=== PATIENT | male | born 1940 | race Caucasian/White ===

== ENCOUNTER 2021-06-06 10:58 | Inpatient (IN) ==
[2021-06-06] MEDS ORDERED: NS 0.9% 1000 ml BAG 1,000 ML IV ONE (11:00)
[2021-06-06] MEDS ORDERED: Iodixanol (CONTRAST) 320 MG/ML 100 ML SDV IV ONE (11:14)
[2021-06-06 11:15] LABS: ABS Lymphocytes 0.5 10^3/ul (1.0-4.8); ABS Monocytes 0.9 10^3/ul (0-0.8); Hematocrit 39 % (42-52); Hemoglobin 13.2 g/dL (14.0-18.0); Lymphocyte % 2.4 %; Mean Corpuscular HGB Conc 34 g/dL (31-36); Mean Corpuscular Hemoglobin 29 pg (27-31); Mean Corpuscular Volume 85 fL (80-94); Mean Platelet Volume 7.8 fL (7.4-10.4); Platelet Count 237 10^3/uL (150-450); Red Blood Count 4.61 10^6 /uL (4.18-5.48); Red Cell Distribution Width 14 % (10-15); White Blood Count 21.4 10^3/uL (3.5-10.8)
[2021-06-06 11:23] LABS: INR 1.16 (0.86-1.15)
[2021-06-06 11:33] LABS: Albumin 3.9 g/dL (3.2-5.2); Albumin/Globulin Ratio 1.3 (1-3); Calcium 9.1 mg/dL (8.6-10.3); HDL Cholesterol 60.2 mg/dL; Total Bilirubin 0.6 mg/dL (0.2-1.0); Total Protein 6.9 g/dL (6.4-8.9); eGFR CKD-EPI 58.2 (>60)
[2021-06-06 11:35] LABS: Troponin I 0.02 ng/mL (<0.03)
[2021-06-06] MEDS ORDERED: Ondansetron 4 mg VIAL 2 MG/ML 2 ml VIAL IV ONE (14:47)
[2021-06-06] MEDS ORDERED: Cefepime 1 GM in Dextrose 1 GM/50 ML BAG IV ONE (14:49)
[2021-06-06] MEDS ORDERED: cefTRIAXone 1 gm/50 mL NS BAG 1 GM/50 ML BAG IVPB SCH (20:00)
[2021-06-06] MEDS ORDERED: Enoxaparin 40 MG/0.4 ML SYR SUBCUT SCH (21:00)
[2021-06-06 21:56] LABS: Hematocrit 33 % (42-52); Mean Corpuscular HGB Conc 34 g/dL (31-36); Mean Corpuscular Hemoglobin 29 pg (27-31); Mean Corpuscular Volume 85 fL (80-94); Mean Platelet Volume 7.8 fL (7.4-10.4); Platelet Count 190 10^3/uL (150-450); Red Blood Count 3.86 10^6 /uL (4.18-5.48); Red Cell Distribution Width 14 % (10-15); White Blood Count 14.4 10^3/uL (3.5-10.8)
[2021-06-06 21:56] LABS: C Reactive Protein 30.97 mg/L (<8.01)
[2021-06-06] MEDS ORDERED: Acetaminophen IV 1 GM/100ML VI 100 ML IVPB ONE (22:00)
[2021-06-06] MEDS ORDERED: Enoxaparin 30 MG/0.3 ML SYR SUBCUT SCH (22:00)
[2021-06-06 22:12] LABS: Calcium 8.1 mg/dL (8.6-10.3); Potassium 3.8 mmol/L (3.5-5.0); eGFR CKD-EPI 72.6 (>60)
[2021-06-07] MEDS ORDERED: Lactated Ringers 1000 ml BAG 1,000 ML IV SCH (02:40)
[2021-06-07] MEDS ORDERED: Iodixanol (CONTRAST) 320 MG/ML 100 ML SDV IV ONE (03:23)
[2021-06-07 05:01] LABS: ABS Lymphocytes 0.5 10^3/ul (1.0-4.8); ABS Monocytes 0.8 10^3/ul (0-0.8); ABS Neutrophils 10.4 10^3/ul (1.5-7.7); Eosinophil % 0.1 %; Hematocrit 32 % (42-52); Hemoglobin 10.8 g/dL (14.0-18.0); Lymphocyte % 4.3 %; Mean Corpuscular HGB Conc 34 g/dL (31-36); Mean Corpuscular Hemoglobin 29 pg (27-31); Mean Corpuscular Volume 85 fL (80-94); Platelet Count 165 10^3/uL (150-450); Red Cell Distribution Width 14 % (10-15); White Blood Count 11.7 10^3/uL (3.5-10.8)
[2021-06-07 05:39] LABS: Albumin 3.1 g/dL (3.2-5.2); Calcium 8.1 mg/dL (8.6-10.3); Direct Bilirubin 0.2 mg/dL (0.03-0.18); Indirect Bilirubin 0.5 mg/dL (0.3-1.0); Magnesium 1.8 mg/dL (1.9-2.7); Potassium 3.7 mmol/L (3.5-5.0); Total Bilirubin 0.7 mg/dL (0.2-1.0)
[2021-06-07 05:45] LABS: Albumin/Globulin Ratio 1.2 (1-3); Globulin 2.5 g/dL (2-4); HDL Cholesterol 49.6 mg/dL; Total Protein 5.6 g/dL (6.4-8.9); eGFR CKD-EPI 72.6 (>60)
[2021-06-07] MEDS ORDERED: cefTRIAXone 1 gm/50 mL NS BAG 1 GM/50 ML BAG IVPB SCH (06:00)
[2021-06-07 08:22] LABS: Urine Appearance Turbid; Urine Color Red
[2021-06-07 08:29] LABS: Urine Specific Gravity 1.039 (1.002-1.030)
[2021-06-07 08:35] LABS: Urine Bacteria Absent (Absent); Urine Red Blood Cell 3+(>10/hpf) (Absent); Urine White Blood Cell 3+(>20/hpf) (Absent)
[2021-06-09 06:14] LABS: Hematocrit 31 % (42-52); Hemoglobin 10.6 g/dL (14.0-18.0)
[2021-06-09 06:32] LABS: Calcium 8.1 mg/dL (8.6-10.3); Potassium 3.7 mmol/L (3.5-5.0); eGFR CKD-EPI 90.2 (>60)
[2021-06-10 06:58] LABS: Hematocrit 33 % (42-52); Hemoglobin 11.5 g/dL (14.0-18.0); Mean Corpuscular HGB Conc 35 g/dL (31-36); Mean Corpuscular Hemoglobin 29 pg (27-31); Mean Corpuscular Volume 85 fL (80-94); Mean Platelet Volume 8.4 fL (7.4-10.4); Platelet Count 166 10^3/uL (150-450); Red Blood Count 3.93 10^6 /uL (4.18-5.48); Red Cell Distribution Width 14 % (10-15); White Blood Count 4.7 10^3/uL (3.5-10.8)
[2021-06-11] MEDS ORDERED: Magnesium Hydroxide LIQ 30 ML UDC PO PRN (14:18)
[2021-06-11] MEDS: Senna TAB 8.6 mg TAB PO SCH (21:25)
[2021-06-11] MEDS: Polyethylene Glycol 3350 17 GM PACKET PO SCH (21:26)
[2021-06-12] MEDS: Senna TAB 8.6 mg TAB PO SCH ×2 (08:57→21:10)
[2021-06-12] MEDS: Polyethylene Glycol 3350 17 GM PACKET PO SCH ×2 (08:57→21:09)
[2021-06-13] MEDS: Polyethylene Glycol 3350 17 GM PACKET PO SCH ×2 (09:00→20:40)
[2021-06-13] MEDS: Senna TAB 8.6 mg TAB PO SCH ×2 (09:01→20:40)
[2021-06-14] MEDS: Polyethylene Glycol 3350 17 GM PACKET PO SCH ×2 (09:05→20:23)
[2021-06-14] MEDS: Senna TAB 8.6 mg TAB PO SCH ×2 (09:06→20:23)
[2021-06-15] MEDS: Senna TAB 8.6 mg TAB PO SCH ×2 (07:05→20:30)
[2021-06-15] MEDS: Polyethylene Glycol 3350 17 GM PACKET PO SCH ×2 (07:05→20:30)
[2021-06-16] MEDS: Polyethylene Glycol 3350 17 GM PACKET PO SCH ×2 (08:23→20:22)
[2021-06-16] MEDS: Senna TAB 8.6 mg TAB PO SCH ×2 (08:24→20:21)
[2021-06-17 08:05] VITALS: BP 144/63
[2021-06-17] MEDS: Polyethylene Glycol 3350 17 GM PACKET PO SCH (09:48)
[2021-06-17] MEDS: Senna TAB 8.6 mg TAB PO SCH (09:50)
== END 2021-06-17 13:45 | DRG 871 ==
LOC: ED 10:58 → EDHOLD 16:02 → SUATTDRO 16:02 → MEDTELE 17:49
PROVIDERS: ADMIT Internal Medicine; ATTEND Student in an Organized Health Care Education/Training Program

== ENCOUNTER 2023-06-19 13:03 | Inpatient (IN) ==
[2023-06-19 13:39] LABS: ABS Lymphocytes 0.6 10^3/uL (1.0-4.8); ABS Monocytes 0.3 10^3/uL (0.0-1.1); ABS Neutrophils 14.6 10^3/uL (1.5-7.6); ABS Nucleated RBC 0.01 10^3/ul; Hematocrit 36.5 % (38-53); Hemoglobin 12.1 g/dL (13.2-16.3); Lymphocyte % 3.6 %; Mean Corpuscular Volume 87.7 fL (80-97); Mean Platelet Volume 7.5 fL (7.5-11.2); Nucleated Red Blood Cells % 0.1 %/100WBC (0.0-0.8); Platelet Count 199 10^3/uL (150-450); Red Blood Count 4.16 10^6/uL (4.06-5.63); Red Cell Distribution Width 14.2 % (12-17); White Blood Count 15.5 10^3/uL (3.6-10.2)
[2023-06-19 14:14] LABS: Albumin 3.7 g/dL (3.2-5.2); Albumin/Globulin Ratio 1.4 (1-3); Calcium 8.5 mg/dL (8.6-10.3); Creatinine, Serum 1.05 mg/dL (0.67-1.17); Globulin 2.7 g/dL (2-4); Total Bilirubin 0.9 mg/dL (0.2-1.0); Total Protein 6.4 g/dL (6.4-8.9); eGFR CKD-EPI 70.9 (>60)
[2023-06-19] MEDS ORDERED: NORMOSOL R PH IV ONE (14:26)
[2023-06-19] MEDS ORDERED: Iohexol 350 (CONTRAST) 500 ML MDV IV ONE (14:59)
[2023-06-19] MEDS ORDERED: NS 0.9% IV SCH (15:00)
[2023-06-19 15:43] LABS: Activated Partial Thrombo Time 30.3 seconds (26.0-38.0); INR 1.27 (0.83-1.13)
[2023-06-19 16:41] LABS: Urine Appearance Cloudy; Urine Bilirubin Negative (Negative); Urine Color Yellow; Urine Ketones Negative (Negative)
[2023-06-19 16:42] LABS: Urine Blood Negative (Negative); Urine Nitrite Negative (Negative); Urine Protein 3+ (>=300 mg/dL) (Negative); Urine Urobilinogen 0.2 (Negative) (Negative); Urine pH >=9.0 (5.0-9.0)
[2023-06-19 16:49] LABS: Urine Squamous Epithelial Cell Present (Absent)
[2023-06-19 16:51] LABS: Urine Bacteria 2+ (Absent); Urine Red Blood Cell Trace(0-2/hpf) (Absent); Urine White Blood Cell 3+(>20/hpf) (Absent)
[2023-06-19 16:51] LABS: High Sensitivity Troponin 1 Hr 23 pg/mL (<20)
[2023-06-19] MEDS ORDERED: cefTRIAXone 1 gm/50 mL D5W 1 GM/50 ML BAG IV ONE (16:51)
[2023-06-19] MEDS ORDERED: Azithromycin 500 mg/250 ml NS 500 MG/250 ML BAG IVPB ONE (16:51)
[2023-06-19] MEDS: Enoxaparin 40 MG/0.4 ML SYR SUBCUT SCH (23:13)
[2023-06-20] MEDS ORDERED: Lactated Ringers 1000 ml BAG 1,000 ML IV ONE (03:19)
[2023-06-20 08:02] LABS: Hematocrit 30.8 % (38-53); Hemoglobin 10.4 g/dL (13.2-16.3); Mean Corpuscular Hemoglobin 29.6 pg (27-33); Mean Corpuscular Volume 87.3 fL (80-97); Mean Platelet Volume 7.9 fL (7.5-11.2); Platelet Count 137 10^3/uL (150-450); Red Blood Count 3.53 10^6/uL (4.06-5.63); Red Cell Distribution Width 14.4 % (12-17); White Blood Count 11.5 10^3/uL (3.6-10.2)
[2023-06-20 08:18] LABS: Albumin 3.1 g/dL (3.2-5.2); Albumin/Globulin Ratio 1.2 (1-3); Calcium 7.7 mg/dL (8.6-10.3); Creatinine, Serum 1.01 mg/dL (0.67-1.17); Globulin 2.6 g/dL (2-4); Magnesium 1.8 mg/dL (1.9-2.7); Potassium 3.8 mmol/L (3.5-5.0); Total Bilirubin 0.5 mg/dL (0.2-1.0); Total Protein 5.7 g/dL (6.4-8.9); eGFR CKD-EPI 74.3 (>60)
[2023-06-20] MEDS ORDERED: Magnesium Sulfate 2 gm BAG 2 GM/50 ML BAG IVPB ONE (09:45)
[2023-06-20] MEDS: cefTRIAXone 1 gm/50 mL D5W 1 GM/50 ML BAG IV SCH (15:46)
[2023-06-20] MEDS ORDERED: Azithromycin 500 mg/250 ml NS 500 MG/250 ML BAG IVPB SCH (16:00)
[2023-06-20] MEDS: Azithromycin 500 mg/250 ml NS 500 MG/250 ML BAG IVPB SCH (18:32)
[2023-06-20] MEDS: Enoxaparin 40 MG/0.4 ML SYR SUBCUT SCH (19:31)
[2023-06-21 07:43] LABS: ABS Eosinophils 0.1 10^3/uL (0.0-0.5); ABS Lymphocytes 0.5 10^3/uL (1.0-4.8); ABS Monocytes 0.5 10^3/uL (0.0-1.1); ABS Neutrophils 6.7 10^3/uL (1.5-7.6); ABS Nucleated RBC 0.01 10^3/ul; Eosinophil % 1.4 %; Hematocrit 29.5 % (38-53); Hemoglobin 10.2 g/dL (13.2-16.3); Mean Corpuscular Hemoglobin 30.2 pg (27-33); Mean Corpuscular Hgb Conc 34.7 g/dL (31-36); Mean Corpuscular Volume 86.8 fL (80-97); Mean Platelet Volume 8.1 fL (7.5-11.2); Nucleated Red Blood Cells % 0.1 %/100WBC (0.0-0.8); Platelet Count 119 10^3/uL (150-450); Red Cell Distribution Width 14.2 % (12-17); White Blood Count 7.7 10^3/uL (3.6-10.2)
[2023-06-21 08:02] LABS: Calcium 7.7 mg/dL (8.6-10.3); Creatinine, Serum 0.87 mg/dL (0.67-1.17); Potassium 3.8 mmol/L (3.5-5.0); eGFR CKD-EPI 86.1 (>60)
[2023-06-21 14:31] LABS: % Iron Saturation 8 % (15-55); .Transferrin 169 mg/dL (203-362); Iron < 20 ug/dL (50-212); Total Iron Binding Capacity 237 mcg/dL (250-450); Unsaturated Iron Binding 217 ug/dL
[2023-06-21 14:37] LABS: Ferritin 153.4 ng/mL (24-336)
[2023-06-21] MEDS: cefTRIAXone 1 gm/50 mL D5W 1 GM/50 ML BAG IV SCH (17:40)
[2023-06-21] MEDS: Azithromycin 500 mg/250 ml NS 500 MG/250 ML BAG IVPB SCH (18:43)
[2023-06-21] MEDS: Enoxaparin 40 MG/0.4 ML SYR SUBCUT SCH (21:53)
[2023-06-22 06:04] LABS: ABS Eosinophils 0.1 10^3/uL (0.0-0.5); ABS Lymphocytes 0.6 10^3/uL (1.0-4.8); ABS Monocytes 0.4 10^3/uL (0.0-1.1); ABS Neutrophils 3.8 10^3/uL (1.5-7.6); Eosinophil % 1.3 %; Hemoglobin 10.8 g/dL (13.2-16.3); Lymphocyte % 13.1 %; Mean Corpuscular Hemoglobin 30.3 pg (27-33); Mean Corpuscular Hgb Conc 34.9 g/dL (31-36); Mean Corpuscular Volume 86.8 fL (80-97); Mean Platelet Volume 8.9 fL (7.5-11.2); Platelet Count 118 10^3/uL (150-450); Red Blood Count 3.57 10^6/uL (4.06-5.63); Red Cell Distribution Width 14.2 % (12-17); White Blood Count 4.9 10^3/uL (3.6-10.2)
[2023-06-22 06:21] LABS: Calcium 7.6 mg/dL (8.6-10.3); Creatinine, Serum 0.89 mg/dL (0.67-1.17); Magnesium 1.9 mg/dL (1.9-2.7); Potassium 3.7 mmol/L (3.5-5.0); eGFR CKD-EPI 85.6 (>60)
[2023-06-22] MEDS ORDERED: Magnesium Sulfate IV 1GM/100ML 1 GM/100 ML BAG IV ONE (07:28)
[2023-06-22] MEDS: Enoxaparin 40 MG/0.4 ML SYR SUBCUT SCH (21:33)
[2023-06-23 10:30] VITALS: BP 136/62
== END 2023-06-23 12:50 | DRG 871 ==
LOC: ED 13:03 → EDHOLD 13:03 → SUATTDRO 18:42 → MED 22:04 → SSU 06-21 05:48 → MED 06-22 18:44
PROVIDERS: ADMIT Student in an Organized Health Care Education/Training Program; ATTEND Hospitalist

== ENCOUNTER 2023-08-06 02:10 | Inpatient (IN) ==
[2023-08-06] MEDS: Pantoprazole VIAL 40 MG VIAL IV ONE (03:06)
[2023-08-06] MEDS: Ondansetron 4 mg VIAL 2 MG/ML 2 ml VIAL IV ONE (03:06)
[2023-08-06 03:15] LABS: ABS Lymphocytes 0.2 10^3/uL (1.0-4.8); ABS Monocytes 0.3 10^3/uL (0.0-1.1); ABS Neutrophils 8.7 10^3/uL (1.5-7.6); Eosinophil % 0.1 %; Hematocrit 35.7 % (38-53); Hemoglobin 12.1 g/dL (13.2-16.3); Lymphocyte % 2.5 %; Mean Corpuscular Hemoglobin 29.6 pg (27-33); Mean Corpuscular Hgb Conc 33.9 g/dL (31-36); Mean Corpuscular Volume 87.4 fL (80-97); Mean Platelet Volume 7.3 fL (7.5-11.2); Platelet Count 214 10^3/uL (150-450); Red Blood Count 4.09 10^6/uL (4.06-5.63); Red Cell Distribution Width 14.3 % (12-17); White Blood Count 9.2 10^3/uL (3.6-10.2)
[2023-08-06 03:18] LABS: Activated Partial Thrombo Time 28.7 seconds (26.0-38.0); INR 1.21 (0.83-1.13)
[2023-08-06 03:43] LABS: Albumin 3.8 g/dL (3.2-5.2); Albumin/Globulin Ratio 1.7 (1-3); C Reactive Protein 42.02 mg/L (<8.01); Calcium 8.1 mg/dL (8.6-10.3); Creatinine, Serum 1.19 mg/dL (0.67-1.17); Globulin 2.3 g/dL (2-4); Total Bilirubin 0.6 mg/dL (0.2-1.0); Total Protein 6.1 g/dL (6.4-8.9)
[2023-08-06] MEDS: cefTRIAXone 1 gm/50 mL D5W 1 GM/50 ML BAG IV ONE (03:57)
[2023-08-06 04:30] LABS: High Sensitivity Troponin 1 Hr 12 pg/mL (<20)
[2023-08-06] MEDS: metroNIDAZOLE IV 500 MG/100ML 500 MG/100 ML BAG IVPB ONE (04:45)
[2023-08-06] MEDS: Cefepime 1 GM in Dextrose 1 GM/50 ML BAG IV ONE (06:45)
[2023-08-06 07:21] LABS: Hematocrit 35.4 % (38-53); Hemoglobin 11.9 g/dL (13.2-16.3); Mean Corpuscular Hemoglobin 29.5 pg (27-33); Mean Corpuscular Hgb Conc 33.6 g/dL (31-36); Mean Corpuscular Volume 87.7 fL (80-97); Mean Platelet Volume 7.7 fL (7.5-11.2); Platelet Count 209 10^3/uL (150-450); Red Blood Count 4.03 10^6/uL (4.06-5.63); Red Cell Distribution Width 14.3 % (12-17); White Blood Count 9.3 10^3/uL (3.6-10.2)
[2023-08-06 07:36] LABS: Albumin 3.4 g/dL (3.2-5.2); Albumin/Globulin Ratio 1.5 (1-3); Calcium 7.9 mg/dL (8.6-10.3); Creatinine, Serum 1.19 mg/dL (0.67-1.17); Globulin 2.2 g/dL (2-4); Magnesium 1.7 mg/dL (1.9-2.7); Phosphorus 2.4 mg/dL (2.5-5.0); Potassium 3.8 mmol/L (3.5-5.0); Total Bilirubin 0.6 mg/dL (0.2-1.0); Total Protein 5.6 g/dL (6.4-8.9)
[2023-08-06] MEDS: Magnesium Sulfate 2 gm BAG 2 GM/50 ML BAG IVPB ONE (08:10)
[2023-08-06 08:39] LABS: ABS Lymphocytes 0.4 10^3/uL (1.0-4.8); ABS Monocytes 0.3 10^3/uL (0.0-1.1); ABS Neutrophils 8.6 10^3/uL (1.5-7.6); Lymphocyte % 4.5 %
[2023-08-06] MEDS: Lactated Ringers 1000 ml BAG 1,000 ML IV ONE (09:04)
[2023-08-06 09:22] LABS: Urine Appearance Clear; Urine Bilirubin Negative (Negative); Urine Blood Negative (Negative); Urine Color Yellow; Urine Glucose Negative (Negative); Urine Ketones Trace (Negative); Urine Nitrite Negative (Negative); Urine Protein 1+ (>=30 mg/dL) (Negative); Urine Specific Gravity 1.023 (1.002-1.030); Urine Urobilinogen Negative (Negative)
[2023-08-06] MEDS ORDERED: Ondansetron 4 mg VIAL 2 MG/ML 2 ml VIAL IV PRN (09:41)
[2023-08-06] MEDS: Enoxaparin 30 MG/0.3 ML SYR SUBCUT SCH (09:43)
[2023-08-06] MEDS ORDERED: Vancomycin per Pharmacy 1 EA NOTE FOLLOW UP PRN (09:44)
[2023-08-06] MEDS ORDERED: Pantoprazole VIAL 40 MG VIAL IV SCH (10:00)
[2023-08-06] MEDS ORDERED: Vancomycin 1,000 MG in NS 0.9% 250 ml 250 ML IVPB SCH (10:00)
[2023-08-06 10:19] LABS: Urine Bacteria Absent /HPF (Absent); Urine Red Blood Cell Absent /HPF (0-Trace); Urine White Blood Cell Trace(0-5/hpf) /HPF (0-Trace)
[2023-08-06] MEDS: Vancomycin 1,250 MG in NS 0.9% 250 ml 250 ML IVPB ONE (10:35)
[2023-08-06] MEDS: Azithromycin 500 mg/250 ml NS 500 MG/250 ML BAG IVPB SCH (10:38)
[2023-08-06] MEDS: Pantoprazole VIAL 40 MG VIAL IV SCH (20:49)
[2023-08-06] MEDS: Vancomycin 750 MG in NS 0.9% 250 ML IVPB SCH (20:52)
[2023-08-06] MEDS ORDERED: Vancomycin 750 MG in NS 0.9% 250 ML IVPB SCH (21:00)
[2023-08-07] MEDS: cefTRIAXone 1 gm/50 mL D5W 1 GM/50 ML BAG IV SCH (05:50)
[2023-08-07 07:08] LABS: ABS Eosinophils 0.1 10^3/uL (0.0-0.5); ABS Monocytes 0.5 10^3/uL (0.0-1.1); ABS Neutrophils 6.7 10^3/uL (1.5-7.6); Eosinophil % 0.9 %; Hematocrit 30.3 % (38-53); Hemoglobin 10.3 g/dL (13.2-16.3); Lymphocyte % 12.2 %; Mean Corpuscular Hemoglobin 29.9 pg (27-33); Mean Corpuscular Volume 87.9 fL (80-97); Mean Platelet Volume 7.7 fL (7.5-11.2); Platelet Count 149 10^3/uL (150-450); Red Blood Count 3.44 10^6/uL (4.06-5.63); Red Cell Distribution Width 14.5 % (12-17); White Blood Count 8.3 10^3/uL (3.6-10.2)
[2023-08-07 07:26] LABS: Anion Gap 9 mmol/L (2-16); Blood Urea Nitrogen 31 mg/dL (6-24); CO2 Carbon Dioxide 26 mmol/L (22-32); Calcium 7.7 mg/dL (8.6-10.3); Chloride 109 mmol/L (101-111); Creatinine, Serum 1.07 mg/dL (0.67-1.17); Glucose 104 mg/dL (70-100); Iron < 20 ug/dL (50-212); Magnesium 2.2 mg/dL (1.9-2.7); Sodium 144 mmol/L (135-145); eGFR CKD-EPI 69.3 (>60)
[2023-08-07 07:46] LABS: Ferritin 83.4 ng/mL (24-336)
[2023-08-07 08:09] LABS: % Iron Saturation 8 % (15-55); .Transferrin 174 mg/dL (203-362); Total Iron Binding Capacity 244 mcg/dL (250-450); Unsaturated Iron Binding 224 ug/dL
[2023-08-07] MEDS: Ferric Gluconate IV 250 MG in NS 0.9% 250 ml 200 ML IVPB SCH (11:48)
[2023-08-08 05:26] LABS: ABS Eosinophils 0.3 10^3/uL (0.0-0.5); ABS Lymphocytes 0.8 10^3/uL (1.0-4.8); ABS Monocytes 0.5 10^3/uL (0.0-1.1); ABS Neutrophils 6.3 10^3/uL (1.5-7.6); ABS Nucleated RBC 0.01 10^3/ul; Eosinophil % 4.3 %; Hematocrit 29.9 % (38-53); Hemoglobin 10.2 g/dL (13.2-16.3); Lymphocyte % 9.7 %; Mean Corpuscular Hemoglobin 29.9 pg (27-33); Mean Corpuscular Hgb Conc 34.2 g/dL (31-36); Mean Corpuscular Volume 87.5 fL (80-97); Mean Platelet Volume 8.1 fL (7.5-11.2); Nucleated Red Blood Cells % 0.1 %/100WBC (0.0-0.8); Platelet Count 159 10^3/uL (150-450); Red Blood Count 3.42 10^6/uL (4.06-5.63); Red Cell Distribution Width 14.4 % (12-17); White Blood Count 7.9 10^3/uL (3.6-10.2)
[2023-08-08 05:46] LABS: Calcium 7.6 mg/dL (8.6-10.3); Creatinine, Serum 0.8 mg/dL (0.67-1.17); Potassium 3.9 mmol/L (3.5-5.0); eGFR CKD-EPI 88.4 (>60)
[2023-08-08] MEDS ORDERED: Vancomycin Trough Check NOTE FOLLOW UP ONE (08:30)
[2023-08-08] MEDS ORDERED: Senna TAB 8.6 mg TAB PO PRN (11:22)
[2023-08-08] MEDS: Polyethylene Glycol 3350 17 GM PACKET PO SCH (12:37)
[2023-08-08] MEDS: Magnesium CITRATE LIQ 300 ML BTL PO ONE (12:43)
[2023-08-10 06:46] LABS: Calcium 7.7 mg/dL (8.6-10.3); Creatinine, Serum 0.73 mg/dL (0.67-1.17); Magnesium 1.8 mg/dL (1.9-2.7); Potassium 4.2 mmol/L (3.5-5.0); eGFR CKD-EPI 90.8 (>60)
[2023-08-10 10:11] VITALS: BP 148/71
[2023-08-10] MEDS: Magnesium Sulfate 2 gm BAG 2 GM/50 ML BAG IVPB ONE (11:14)
[2023-08-10 19:02] LABS: Hematocrit 30.3 % (38-53); Hemoglobin 10.2 g/dL (13.2-16.3); Mean Corpuscular Hemoglobin 29.9 pg (27-33); Mean Corpuscular Hgb Conc 33.7 g/dL (31-36); Mean Corpuscular Volume 88.9 fL (80-97); Mean Platelet Volume 9.5 fL (7.5-11.2); Platelet Count 192 10^3/uL (150-450); Red Blood Count 3.41 10^6/uL (4.06-5.63); Red Cell Distribution Width 14.5 % (12-17)
== END 2023-08-10 13:16 | DRG 189 ==
LOC: EDHOLD 02:10 → ED 02:10 → MED 03:45 → SUATTDRO 03:45 → OBSVTOIN 03:45 → MED 14:04
PROVIDERS: ADMIT Internal Medicine; ATTEND Student in an Organized Health Care Education/Training Program

== ENCOUNTER 2023-09-24 03:50 | Inpatient (IN) ==
[2023-09-24] MEDS: Ondansetron 4 mg VIAL 2 MG/ML 2 ml VIAL IV ONE ×2 (05:09)
[2023-09-24] MEDS: Pantoprazole 80 mg in NS BAG 80 MG/250 ML BAG IV ONE (05:09)
[2023-09-24 05:19] LABS: ABS Eosinophils 0.1 10^3/uL (0.0-0.5); ABS Lymphocytes 1.4 10^3/uL (1.0-4.8); ABS Monocytes 0.5 10^3/uL (0.0-1.1); ABS Neutrophils 7.4 10^3/uL (1.5-7.6); ABS Nucleated RBC 0.02 10^3/ul; Eosinophil % 0.8 %; Hematocrit 41.4 % (38-53); Hemoglobin 13.9 g/dL (13.2-16.3); Lymphocyte % 15.2 %; Mean Corpuscular Hemoglobin 30.4 pg (27-33); Mean Corpuscular Hgb Conc 33.6 g/dL (31-36); Mean Corpuscular Volume 90.5 fL (80-97); Mean Platelet Volume 7.4 fL (7.5-11.2); Nucleated Red Blood Cells % 0.2 %/100WBC (0.0-0.8); Platelet Count 253 10^3/uL (150-450); Red Blood Count 4.58 10^6/uL (4.06-5.63); Red Cell Distribution Width 15.2 % (12-17); White Blood Count 9.4 10^3/uL (3.6-10.2)
[2023-09-24 05:27] LABS: INR 1.05 (0.83-1.13)
[2023-09-24] MEDS: Haloperidol 5 mg/ml SDV IV/IM 5 MG/ML AMP IV SLOW PU ONE (05:43)
[2023-09-24 05:57] LABS: High Sens Troponin Baseline 5 pg/mL (<20)
[2023-09-24 06:17] LABS: ALT 8 U/L (7-52); Albumin/Globulin Ratio 1.5 (1-3); Alkaline Phosphatase 76 U/L (35-149); Blood Urea Nitrogen 28 mg/dL (6-24); CO2 Carbon Dioxide 25 mmol/L (22-32); Calcium 8.4 mg/dL (8.6-10.3); Chloride 107 mmol/L (101-111); Creatinine, Serum 0.98 mg/dL (0.67-1.17); Globulin 2.7 g/dL (2-4); Glucose 146 mg/dL (70-100); Sodium 143 mmol/L (135-145); Total Bilirubin 0.6 mg/dL (0.2-1.0); Total Protein 6.7 g/dL (6.4-8.9); eGFR CKD-EPI 76.5 (>60)
[2023-09-24 06:27] LABS: Anion Gap 11 mmol/L (2-16)
[2023-09-24 06:46] LABS: High Sensitivity Troponin 1 Hr < 3 pg/mL (<20)
[2023-09-24] MEDS: Iohexol 350 (CONTRAST) 500 ML MDV IV ONE (07:19)
[2023-09-24] MEDS: MULTIPLE ELECTROLYTES IV ONE (08:23)
[2023-09-24] MEDS: Acetaminophen IV 1 GM/100ML 1,000 MG/100 ML BAG IV ONE (09:03)
[2023-09-24] MEDS: Azithromycin 500 mg/250 ml NS 500 MG/250 ML BAG IVPB ONE (09:05)
[2023-09-24] MEDS ORDERED: Ondansetron 4 mg VIAL 2 MG/ML 2 ml VIAL IV PRN (10:07)
[2023-09-24] MEDS ORDERED: Senna TAB 8.6 mg TAB PO PRN (10:07)
[2023-09-24] MEDS ORDERED: Magnesium Hydroxide LIQ 30 ML UDC PO PRN (10:07)
[2023-09-24] MEDS ORDERED: Albuterol HFA INHALER 8 gm MDI INH PRN (10:12)
[2023-09-24] MEDS ORDERED: Enoxaparin 40 MG/0.4 ML SYR SUBCUT SCH (11:00)
[2023-09-24] MEDS: Vancomycin 1,000 MG in NS 0.9% 250 ml 250 ML IVPB ONE (11:21)
[2023-09-24] MEDS: cefTRIAXone 1 gm/50 mL D5W 1 GM/50 ML BAG IV SCH (11:21)
[2023-09-24 11:34] LABS: Urine Appearance Clear; Urine Bilirubin Negative (Negative); Urine Blood Negative (Negative); Urine Color Light-Yellow; Urine Glucose Negative (Negative); Urine Ketones 1+ (Negative); Urine Nitrite Negative (Negative); Urine Protein Trace (Negative); Urine Specific Gravity >1.050 (1.002-1.030); Urine Urobilinogen Negative (Negative)
[2023-09-24] MEDS: NF:BUDESONIDE/GLYCOPYR/FORMOTEROL MDI (NF) INH SCH (21:35)
[2023-09-25 06:49] LABS: ABS Eosinophils 0.2 10^3/uL (0.0-0.5); ABS Lymphocytes 0.9 10^3/uL (1.0-4.8); ABS Monocytes 0.5 10^3/uL (0.0-1.1); ABS Neutrophils 7.9 10^3/uL (1.5-7.6); Eosinophil % 1.7 %; Hematocrit 31.1 % (38-53); Hemoglobin 10.7 g/dL (13.2-16.3); Lymphocyte % 9.5 %; Mean Corpuscular Hemoglobin 30.9 pg (27-33); Mean Corpuscular Hgb Conc 34.2 g/dL (31-36); Mean Corpuscular Volume 90.2 fL (80-97); Mean Platelet Volume 7.7 fL (7.5-11.2); Platelet Count 157 10^3/uL (150-450); Red Blood Count 3.45 10^6/uL (4.06-5.63); Red Cell Distribution Width 15.2 % (12-17); White Blood Count 9.5 10^3/uL (3.6-10.2)
[2023-09-25 07:03] LABS: Calcium 7.5 mg/dL (8.6-10.3); Creatinine, Serum 0.9 mg/dL (0.67-1.17); Potassium 4.1 mmol/L (3.5-5.0); eGFR CKD-EPI 84.7 (>60)
[2023-09-25] MEDS: Azithromycin 500 mg/250 ml NS 500 MG/250 ML BAG IVPB SCH (08:57)
[2023-09-25 14:18] VITALS: BP 128/60
== END 2023-09-25 17:25 | disposition home or self-care (01) | DRG 871 ==
LOC: EDHOLD 03:50 → ED 03:50 → MED 12:14 → SUATTDRO 16:10
PROVIDERS: ADMIT Internal Medicine; ATTEND Hospitalist